=== PATIENT | female | born 1990 | race Caucasian/White ===

== ENCOUNTER 2020-03-05 10:10 | Outpatient (REF) | payer BC, SELFPAY ==
[2020-03-06 11:33] LABS: CT PCR NOT DETECTED (Not Detect.); NG PCR NOT DETECTED (Not Detect.)
[2020-03-06 13:54] LABS: BV Int Neg Control Negative (Negative); BV Int Pos Control Positive (Positive)
[2020-03-28 02:58] LABS: HPV mRNA E6/E7 Not Detected (Not Detected)
== END 2020-03-05 10:11 | disposition home or self-care (01) ==
LOC: HO.LAB 10:10
PROVIDERS: PCP Internal Medicine; Referring Provider Internal Medicine; Visit Provider Advanced Practice Midwife
DX: Z01.419 Encounter for gynecological examination (general) (routine) without abnormal findings (principal); R10.2 Pelvic and perineal pain; Z20.2 Contact with and (suspected) exposure to infections with a predominantly sexual mode of transmission; N89.8 Other specified noninflammatory disorders of vagina
CPT/HCPCS: 87480; 87491; 87510; 87591; 87624; 87660; 88141; 88142

== ENCOUNTER → 2020-04-09 11:41 | Outpatient (BNVA) | payer BC, SELFPAY | PROVIDERS: Visit Provider Advanced Practice Midwife | DX: Z76.89 Persons encountering health services in other specified circumstances (principal) ==

== ENCOUNTER 2020-07-24 11:32 | Outpatient (REF) | payer BC, SELFPAY ==
[2020-07-25 11:26] LABS: CT PCR NOT DETECTED (Not Detect.); NG PCR NOT DETECTED (Not Detect.)
== END 2020-07-24 11:33 | disposition home or self-care (01) ==
LOC: HO.LAB 11:32
PROVIDERS: Visit Provider Advanced Practice Midwife
DX: Z30.430 Encounter for insertion of intrauterine contraceptive device (principal); Z20.2 Contact with and (suspected) exposure to infections with a predominantly sexual mode of transmission; Z32.02 Encounter for pregnancy test, result negative
CPT/HCPCS: 58300; 81025; 87491; 87591

== ENCOUNTER → 2020-09-04 14:25 | Outpatient (BNVA) | payer BC, SELFPAY | PROVIDERS: Visit Provider Advanced Practice Midwife ==

== ENCOUNTER 2020-09-21 09:58 | Outpatient (REF) | payer BC, SELFPAY | END 2020-09-21 09:59 | disposition home or self-care (01) | LOC: HO.LAB 09:58 | PROVIDERS: Visit Provider Nurse Practitioner Family | DX: Z20.822 Contact with and (suspected) exposure to COVID-19 (principal); J02.0 Streptococcal pharyngitis | CPT/HCPCS: U0003; U0005 ==

== ENCOUNTER 2020-10-29 14:04 | Outpatient (REF) | payer BC, SELFPAY ==
[2020-10-30 06:08] LABS: CT PCR NOT DETECTED (Not Detect.); NG PCR NOT DETECTED (Not Detect.)
[2020-10-30 08:39] LABS: BV Int Neg Control Negative (Negative); BV Int Pos Control Positive (Positive)
== END 2020-10-29 14:05 | disposition home or self-care (01) ==
LOC: HO.LAB 14:04
PROVIDERS: Visit Provider Advanced Practice Midwife
DX: N92.1 Excessive and frequent menstruation with irregular cycle (principal); R10.2 Pelvic and perineal pain; Z97.5 Presence of (intrauterine) contraceptive device
CPT/HCPCS: 81025; 87480; 87491; 87510; 87591; 87660